=== PATIENT | male | born 1950 | race Two or more races ===

== ENCOUNTER 2025-05-03 17:13 | Emergency (ER) | payer MEDICARE, OTHER, SELFPAY ==
[2025-05-03 17:22] VITALS: BP 129/83
[2025-05-03 18:02] LABS: Hematocrit 37.9 % (39.0-52.0); Hemoglobin 13.2 g/dL (13.0-18.0); Mean Corp Hgb Conc. 34.8 g/dL (33.0-37.0); Mean Corpuscular Volume 87.9 fL (80.0-94.0); Nucleated Red Blood Cells % 0 % (-); Platelet Count 168 10^3/uL (130-400); Red Cell Dist. Width 13.2 % (11.5-14.5)
[2025-05-03 18:13] LABS: ALT (SGPT) 16 U/L (0-50); AST (SGOT) 18 U/L (17-59); Albumin 4.0 g/dl (3.5-5.0); Alkaline Phosphatase 59 U/L (38-126); Blood Urea Nitrogen 18 mg/dl (9-20); Calcium 9.0 mg/dl (8.4-10.2); Carbon Dioxide 25 mmol/L (22-30); Chloride 114 mmol/L (98-107); Glucose 76 mg/dl (70-99); Potassium 4.0 mmol/L (3.5-5.1); Sodium 142 mmol/L (135-145); Total Protein 6.8 g/dl (6.3-8.2); eGFR > 60.00
[2025-05-03 18:21] LABS: Troponin I < 0.012 ng/ml
--- NOTE | 2025-05-03 19:54 | ED.GENMED ---
History of Present Illness
General
Chief Complaint: Chest Pain
Source: patient and family
Exam Limitations: other (Son served as a flume worker at patient request)
Time Seen by Provider: 05/03/25 19:33
History of Present Illness
History of Present Illness:
This patient is a 74-year-old male who was feeling his usual self until around noon today when he noted the gradual onset of discomfort in the mid to right back area that is now since resolved. It was very mild and he thought it might be
musculoskeletal so he was moving his arm around to try make it better. Then, later today he told his son that his chest was uncomfortable associated with mild dyspnea. Son thought that he looked a little pale, and when he was alerted regarding
chest discomfort brought him straight to the emergency department. Patient now feels better. He describes the pain as very mild. The pain is slightly worse with a deep breath. Patient is fully anticoagulated and compliant with his medications.
He denies leg swelling, hemoptysis. He just returned from [facility] about 5 days ago. He denies fever, chills, cough, sore throat, rhinorrhea, headache, dizziness, abdominal pain, lower back pain, numbness, tingling, headache, or other complaints.
He denies radiation of the chest 'discomfort'.
Past History
Past History
ED Past Medical History: Other (A-fib, hypertension, elevated cholesterol)
ED Past Surgical History: Orthopedic
Social History
Tobacco: Former smoker
Alcohol: None
Drug: None
Living: with family
Phy Exam
Physical Exam
Physical Exam:
GENERAL: Alert , in no apparent distress
EYE: pupils equal and reactive
NECK: Supple, no significant adenopathy.
ENT: o/p clr, mmm.
CARDIAC: Regular rate and rhythm .
LUNGS: Clear breath sounds bilaterally, no acute respiratory distress, no wheezes/rales/rhonchi
ABDOMEN: Soft, without focal tenderness, no r/g, no cvat
NEUROLOGICAL: Alert and oriented, no focal neuro deficits
SKIN: Warm and dry, skin intact.
MUSCULOSKELETAL: No edema, well perfused, normal pulses bilaterally.
PSYCH: Normal and appropriate interaction.
Scores
Heart Score for Chest Pain Patients
STEMI patient?: Not applicable
Course
Orders/Labs/Results
Orders:
Orders
05/03/25 17:14
EKG [Electrocardiogram (*1)] Urgent
Reason for Study: Chest Pain
EKG- Treatment ONCE
05/03/25 17:33
Complete Blood Count/With Diff Urgent
Comprehensive Metabolic Panel Urgent
Lipase Urgent
Troponin I Urgent
05/03/25 19:36
Morphine Sulfate 4 mg IV NOW STA
05/03/25 20:22
D-Dimer Urgent
Troponin I Urgent
05/03/25 20:29
Morphine Sulfate 4 mg IV NOW STA
05/03/25 20:57
CT Chest Angio W/wo Iv Contras Urgent
Comment:
Reason For Exam: chest/back pain, t/c dissection
Abnormal Lab Results
05/03/25
17:33
RBC 4.31 L 10^6/uL
(4.70-6.10)
Hct 37.9 L %
(39.0-52.0)
MPV 11.8 H fL
(7.4-10.4)
Chloride 114 H mmol/L
(98-107)
05/03/25 17:33
05/03/25 17:33
Vital Signs
Initial and Last Documented VS:
Initial Vital Signs
Temp Pulse Resp BP Pulse Ox
98.5 F 56 20 129/83 99
05/03/25 17:22 05/03/25 17:22 05/03/25 17:22 05/03/25 17:22 05/03/25 17:22
Last Documented Vital Signs
Temp Pulse Resp BP Pulse Ox
98.5 F 45 19 129/83 95
05/03/25 17:22 05/03/25 19:30 05/03/25 19:30 05/03/25 17:22 05/03/25 19:58
*Pulse Oximetry
SaO2: 95
Oxygen Mode of Delivery: Room air
Patient hypoxic: no
*Critical Care Note
Total Time (30-74mins, 75-104mins- exclusive of procedures): Not Applicable
Update Note
Update Note:
Patient presents to the Emergency Department with chest and back pain
Number and Complexity of Problems Addressed at the Encounter
� Chronic conditions affecting care:
� Acute Exacerbation and/or Progression of Chronic Illness:
� Differential Diagnosis includes: But not limited to ACS, dissection, PE, pneumonia, musculoskeletal pain, pericarditis, etc. etc.
Amount and/or Complexity of Data to be Reviewed and Analyzed
� I performed an independent evaluation of and my interpretation is:
EKG: Reviewed by me, sinus bradycardia, nonspecific T wave flattening/inversions in inferior leads, no acute ischemia, right bundle branch block noted
CT:Examination is negative for thoracic aortic dissection.
Aneurysmal dilation of the thoracic aorta, measurements given above. Consider consultation with thoracic surgery. If conservative management is chosen, follow-up CT angiography should be considered, suggested timeframe of one year.
Mild coronary artery calcifications are present. Please correlate with symptoms of and risk factors for coronary artery disease, with further workup as clinically appropriate.
Fatty infiltration of the liver.
Xrays:
Laboratory Studies: Generally unremarkable
Other:
� Review of other/old records reveals:
� Clinical information was obtained by an independent historian: Son who serves as flume worker but also describes patient's PMH
� Prescriptions/Medications Considered but not given:
� Further testing considered but not performed:Consideration of CT r/o PE, however given compliant with DOAC and D dimer negative, PE essentially excluded.
Risk of Complications and/or Morbidity or Mortality of Patient Management
� Social determinants of health affecting care:
� Discussion with other providers (PCP, Hospitalists, Consultants, etc):
� Escalation of care including admission/observation vs risk of discharge considered: Workup unremarkable here. Incidental enlargement of aortic root noted. I specifically spoke to the son about this, printed out his CAT scan
report, and emphasized the importance of prompt follow-up. He states that this is something that they are already aware of, and have monitored regularly with his weft straightener. I recommend that he see his weft straightener promptly and bring this CAT
scan report him. Patient resting comfortably without symptoms at this time.
ED Attending Note
-
Portions of this chart may have been created with voice recognition software.� Occasional wrong word or��sound alike� substitutions may have occurred due to the inherent limitations of voice recognition software.
Discharge Plan
Departure
Patient Disposition: Home (Routine Discharge)
Date of Disposition: 05/03/25
Time of Disposition: 22:42
Patient with high blood pressure during this ER visit?: Yes
Condition: Good
Discharge Problem:
Chest pain
Instructions: Chest Pain NON-[facility] [employer] Follow Up
Referrals:
Ernesto Huddleston DO [Family Provider, Family Practice]
Activity Restrictions/Additional Instructions:
PLEASE SEE ATTACHED CAT SCAN REPORT AND BRING THIS TO YOUR BASE LOADER WHEN YOU SEE HIM OR HER PROMPTLY. IF YOU DEVELOP RECURRENT NEW OR INCREASING PAIN, VOMITING, DIZZINESS, NUMBNESS, TROUBLE BREATHING, OR OTHER WORRISOME SIGNS, PLEASE RETURN TO
THE ER IMMEDIATELY!
Interventions
Interventions:
*Risk Screen - Suicide Last Done: 05/03/25 17:22
*General Assessment Last Done: 05/03/25 17:22
*Neglect/Abuse Screening Last Done: 05/03/25 17:22
Discharge Date and Time
Print Language: [place]
[2025-05-03 20:14] LABS: Lipase 38 U/L (23-300)
[2025-05-03] MEDS: MORPHINE SULFATE 4 MG IV (20:31)
[2025-05-03 20:44] LABS: D-Dimer 0.34 ug/mlFEU (0.00-0.50)
[2025-05-03 21:04] LABS: Troponin I < 0.012 ng/ml
== END 2025-05-03 23:56 | disposition home or self-care (01) ==
LOC: EMR 17:13
PROVIDERS: Emergency Medicine; EMERGENCY PHYSICIAN Emergency Medicine; FAMILY PHYSICIAN Family Medicine Adult Medicine
DX: R07.9 Chest pain, unspecified (principal); R00.1 Bradycardia, unspecified; I45.10 Unspecified right bundle-branch block; I77.810 Thoracic aortic ectasia; K76.0 Fatty (change of) liver, not elsewhere classified; I48.91 Unspecified atrial fibrillation; I10 Essential (primary) hypertension; E78.00 Pure hypercholesterolemia, unspecified; Z87.891 Personal history of nicotine dependence
CPT/HCPCS: 99284; 96374; 71275; 80053; 83690; 84484; 85025; 85379; 93005; Q9967